=== PATIENT | male | born 1980 | race African-American/Black ===

== ENCOUNTER 2018-11-09 17:40 | Observation (INO) ==
[2018-11-09] MEDS ORDERED: ASPIRIN PO ONE (18:01)
[2018-11-09 18:32] LABS: BASO# 0.02 X1000 (0.0-0.2); BASO% 0.3 % (0.0-0.8); EOS# 0.13 X1000 (0.0-0.7); EOS% 1.8 % (0.0-10.0); HEMATOCRIT 37.8 % (42.0-52.0); HEMOGLOBIN 12.6 g/dL (14.0-18.0); IMM GRAN# 0.01 X1000 (0.0-0.04); IMM GRAN% 0.1 % (0.0-0.5); LYMPH# 3.23 X1000 (1.2-3.4); LYMPH% 44.3 % (20.5-51.1); MCH 28.4 PG (27-31); MCHC 33.3 g/dL (33-37); MCV 85.1 FL (81-99); MONO# 0.71 X1000 (0.11-0.59); MONO% 9.7 % (1.7-9.3); MPV 9.9 FL (7.4-10.4); NEUT# 3.19 X1000 (1.4-6.5); NEUT% 43.8 % (42.2-75.2); PLT 248 X1000 (130-400); RBC 4.44 XMIL (4.7-6.1); RDW 12.9 % (11.5-14.5); WBC 7.29 X1000 (4.8-10.8)
--- NOTE | 2018-11-09 18:48 | Diag Imaging Result Doc PS360 ---
EXAM: CHEST-2 VIEWS 11/09/2018 HISTORY: chest pain TECHNIQUE: PA and lateral chest COMMENT: There is no evidence of acute cardiac or pulmonary disease. Compared to 06/17/2015 there has been no significant change in the appearance of the chest. IMPRESSION: No evidence of acute disease. Electronically signed by Jair Grullon 11/09/2018 6:46 PM
--- NOTE | 2018-11-09 18:55 | PROVIDER DOCUMENTATION ---
HPI-Chest Pain - General Chief Complaint: Chest Pain Stated Complaint: PAIN IN CHEST / ARM / BACK Time Seen by Provider: 11/09/18 18:22 Source: patient Allergies/Adverse Reactions: Patient Allergies Allergy/AdvReac Type Severity Reaction Status Date / Time No Known Allergies Allergy Verified 09/17/18 17:13 Home Medications: Home Medication List Medication Instructions Recorded Confirmed Last Taken Type Doxycycline 100 mg PO BID #14 tab 09/17/18 Unknown Rx - History of Present Illness-CP Nature of Presenting Problem: pt reports substernal and left side CP radiating down left arm onset yesterday but has become progressively worse today, pt reports dyspnea, w/o n/v or diaphoresis. pt denies other sx at this time, pain is still present reported as 02/02 now. Location: reports: substernal, other (left side) Chest Pain Radiation: reports: arms (left arm) Quality of Pain: reports: fullness, sharp Severity in ED: moderate Onset/Duration: 24 hours ago Timing: still present Context/Activities at Onset: reports: none Modifying Factors: improves with: nothing Associated Symptoms: reports: shortness of breath. denies: diaphoresis, dizziness, nausea, syncope, vomiting Nitro Today/Relief: no nitro taken today Aspirin Treatment Today: 325 mg x 1 Prior Chest Pain/Cardiac Workup: reports: no prior chest pain, no prior cardiac workup Similar Symptoms Previously?: No Recently Seen Here or By Another Healthcare Provider: No Review of Systems - Adult - REVIEW OF SYSTEMS - ADULT Constitutional: reports: no symptoms reported Eyes: reports: no symptoms reported Ears, Nose, Mouth & Throat: reports: no symptoms reported Cardiovascular: reports: see HPI Respiratory: reports: see HPI Gastrointestinal: reports: no symptoms reported Genitourinary: reports: no symptoms reported Musculoskeletal: reports: no symptoms reported Integumentary: reports: no symptoms reported Neurological: reports: no symptoms reported Psychiatric: reports: no symptoms reported Endocrine: reports: no symptoms reported Hematologic/Lymphatic: reports: no symptoms reported Allergic/Immunologic: reports: no symptoms reported All Other Systems: Reviewed and Negative Past History - Adult - PAST MEDICAL HISTORY-ADULT Review of Records: reports: Old Records Reviewed, Nursing Assessment Review, Medications Reviewed Major Childhood Illnesses: reports: denies history Cardiovascular: reports: denies history Respiratory: reports: asthma Gastrointestinal: reports: denies history Musculoskeletal: reports: denies history Neurological: reports: denies history Endocrine/Immune: reports: denies history Diabetes Type: Type 2 Diabetes controlled by:: PO Meds - PRIOR SURGERIES/PROCEDURES Surgical/Procedure History: reports: reviewed, not pertinent - IMMUNIZATION STATUS Childhood Immunizations: See Nurse Assessment Flu Vaccine: See Nurse Assessment - FAMILY HISTORY Family History: diabetes (borderline) - SOCIAL HISTORY Smoking: greater than 1 pack/day Provider spent 3-5 mins advising pt. on dangers of tobacco.: Discussed manners to quit use, and f/u contacts for add'l counseling. Substance Use: none/never Alcohol Use Frequency: never Physical Exam-General - PHYSICAL EXAM-ADULT Initial Vital Signs Reviewed: Yes - CONSTITUTIONAL General Appearance: appears well, alert, mild distress, obese - EYES Eyes: PERRL/EOMI, pink conjunctivae. negative: anisocoria, photophobia, sclera injected, scleral icterus - HEAD, EARS, NOSE, MOUTH & THROAT HENMT: normocephalic/atraumatic, moist mucous membranes, normal ENT inspection - NECK Neck: non-tender, full range of motion, supple - RESPIRATORY Respiratory: chest non-tender, lungs clear, normal breath sounds, no respiratory distress, no accessory muscle use. negative: respiratory distress - CARDIOVASCULAR Cardiovascular: normal peripheral pulses, regular rate, rhythm, no edema - GASTROINTESTINAL (ABDOMEN) Abdominal Exam: normal bowel sounds, non tender, soft - LYMPHATIC Lymphatic: no adenopathy - MUSCULOSKELETAL Back Exam: normal inspection, no CVA tenderness, no vertebral tenderness Extremity: normal range of motion, non-tender, normal gait, normal inspection, no pedal edema, no calf tenderness, normal capillary refill - SKIN Integumentary: normal color, normal turgor, warm/dry - NEUROLOGIC Neurologic: junior web designer II-XII nml as tested, grossly normal, no motor/sensory deficits. negative: facial droop, focal weakness - PSYCHIATRIC Psych/Mental Status: normal mood/affect, normal thought content, normal thought process, oriented x 3 - HEART Score HEART Score: History: Highly Suspicious (smoker, diabetic, morbid obesity) HEART Score: ECG: Normal HEART Score: Age: < or = 45 Years HEART Score: Risk Factors for Atherosclerotic Disease: > or = 3 Risk Factors or History of Atherosclerotic Disease HEART Score: Troponin: < or = Normal Limit (Obesity, borderline diabetic) Total HEART Score:: 4 Progress - PLAN OF CARE/RESULTS Progress/Plan/Lab Results: Vital Signs - 8 hr 11/09/18 17:56 11/09/18 19:55 Temperature 98 F Pulse Rate 90 79 Respiratory Rate 18 18 Blood Pressure 121/81 105/55 O2 Sat by Pulse Oximetry 99 97 Laboratory Results - last 24 hr 11/09/18 11/09/18 11/09/18 18:22 18:22 18:22 WBC 7.29 RBC 4.44 L Hgb 12.6 L Hct 37.8 L MCV 85.1 MCH 28.4 MCHC 33.3 RDW Std Deviation 12.9 Plt Count 248 MPV 9.9 Immature Gran % (Auto) 0.1 Neut % (Auto) 43.8 Lymph % (Auto) 44.3 [place] % (Auto) 9.7 H Eos % (Auto) 1.8 Baso % (Auto) 0.3 Immature Gran # (Auto) 0.01 Neut # (Auto) 3.19 Lymph # (Auto) 3.23 [place] # (Auto) 0.71 H Eos # (Auto) 0.13 Baso # (Auto) 0.02 PTT (Actin FS) D-Dimer, Quantitative Sodium Potassium Chloride Carbon Dioxide Anion Gap BUN Creatinine Estimated GFR/1.73 m2 BUN/Creatinine Ratio Glucose Calculated Osmolality Calcium Magnesium Total Bilirubin AST ALT Alkaline Phosphatase Creatine Kinase 445 H Creatine Kinase Index 1.2 CK-MB (CK-2) 5.56 H Troponin T < 0.010 Igl-F-Knsjocbhyoo Pept Total Protein Albumin Globulin Albumin/Globulin Ratio 11/09/18 11/09/18 11/09/18 18:22 18:22 18:22 WBC RBC Hgb Hct MCV MCH MCHC RDW Std Deviation Plt Count MPV Immature Gran % (Auto) Neut % (Auto) Lymph % (Auto) [place] % (Auto) Eos % (Auto) Baso % (Auto) Immature Gran # (Auto) Neut # (Auto) Lymph # (Auto) [place] # (Auto) Eos # (Auto) Baso # (Auto) PTT (Actin FS) 21.6 L D-Dimer, Quantitative 0.39 Sodium 142 Potassium 4.5 Chloride 105 Carbon Dioxide 27 Anion Gap 10 BUN 17 Creatinine 1.0 Estimated GFR/1.73 m2 > 60 BUN/Creatinine Ratio 17 Glucose 96 Calculated Osmolality 285 Calcium 9.1 Magnesium 1.9 Total Bilirubin 0.20 AST 24 ALT 40 Alkaline Phosphatase 80 Creatine Kinase Creatine Kinase Index CK-MB (CK-2) Troponin T Xjx-[id number]-Sjrpfdwacrr Pept 46 Total Protein 7.0 Albumin 4.1 Globulin 3.0 Albumin/Globulin Ratio 1.0 11/09/18 11/09/18 20:08 20:08 WBC RBC Hgb Hct MCV MCH MCHC RDW Std Deviation Plt Count MPV Immature Gran % (Auto) Neut % (Auto) Lymph % (Auto) [place] % (Auto) Eos % (Auto) Baso % (Auto) Immature Gran # (Auto) Neut # (Auto) Lymph # (Auto) [place] # (Auto) Eos # (Auto) Baso # (Auto) PTT (Actin FS) D-Dimer, Quantitative Sodium Potassium Chloride Carbon Dioxide Anion Gap BUN Creatinine Estimated GFR/1.73 m2 BUN/Creatinine Ratio Glucose Calculated Osmolality Calcium Magnesium Total Bilirubin AST ALT Alkaline Phosphatase Creatine Kinase 441 H Creatine Kinase Index 1.2 CK-MB (CK-2) 5.30 H Troponin T < 0.010 [id number] Pept Total Protein Albumin Globulin Albumin/Globulin Ratio Orders Category Date Time Status Nursing- Obtain EKG ONCE Care 11/09/18 18:00 Active CHEST-2 VIEWS [RAD] Stat Exams 11/09/18 18:00 Completed CBC WITH DIFF [HEME] Stat Lab 11/09/18 18:22 Completed CK PROFILE [SP CHEM] Stat Lab 11/09/18 18:22 Completed CK PROFILE [SP CHEM] Stat Lab 11/09/18 20:08 Completed COMPREHENSIVE METABOLIC PANEL [CHEM] Stat Lab 11/09/18 18:22 Completed D-DIMER [COAG] Stat Lab 11/09/18 18:22 Completed MAGNESIUM [CHEM] Stat Lab 11/09/18 18:22 Completed PRO B-NATRIURETIC PEPTIDE Stat Lab 11/09/18 18:22 Completed PTT [COAG] Stat Lab 11/09/18 18:22 Completed TROPONIN T Stat Lab 11/09/18 18:22 Completed TROPONIN T Stat Lab 11/09/18 20:08 Completed Aspirin Med 11/09/18 18:01 Discontinued 325 mg PO NOW ONE EKG [EKG] Stat Ther 11/09/18 18:00 Draft EKG [EKG] Stat Ther 11/09/18 20:00 Draft discussed with patient the he would be admitted for furthur observation, pt verbalized understanding and agreed with POC. pt not given nitro due to low BP Result Diagrams: 11/09/18 18:22 11/09/18 18:22 - REASSESSMENT Reassessment #1 Status: unchanged Reassessment Comment: pt still having CP - EKG 1 Time of EKG reading by physician:: 18:06 EKG Read and Signed by:: Abhi Delarosa EKG Interpretation (*Must complete 3 of following elements*): Normal Rate: 84 Rhythm: NSR Jachin: normal QRS: normal DE Interval: normal ST Wave: normal Prior EKG Comparison: unchanged from prior 2 Time of EKG reading by physician:: 20:01 EKG Read and Signed by:: Kev Lew EKG Interpretation (*Must complete 3 of following elements*): Normal Rate: 78 Rhythm: NSR Jachin: normal QRS: normal DE Interval: normal ST Wave: normal Prior EKG Comparison: unchanged from prior - XRAY 1 XRAY Study: Chest Impression: Normal Comparison with other Films: no changes (NAD) - CONSULTS/PCP/HOSPITALIST Notification #1 *Consult/PCP/Hospitalist*: leanne Time Discussed: 21:35 Consult Disposition: Admit Departure - Departure Date of Disposition Decision: 11/09/18 Time of Disposition Decision: 21:35 DIAGNOSIS: Chest pain Disposition: ADMITTED INPATIENT 09 Certified Medical Emergency: Emergent Condition: Stable Referrals and Follow-Ups: Emily Xavier CRNP [Primary Care Provider] - - Critical Care Note This patient required my direct & personal management of CC.: No Attestation - Physician/ PRERNA Attestation Patient care was provided by Advanced Practice Provider:: Yes Advanced Practice Provider:: Cheri Garza Advanced Practice Provider documentation review:: The Mid-level provider documentation, treatment plan and medical decision making was reviewed by the physician who agrees with all treatment and medical decision making by the P. The physician spent face to face time with patient:: No Advanced Practice Provider documentation review:: Supervising physician onsite and consulted in the evaluation and care of this patient. The physician did not have a face to face encounter with the patient.
[2018-11-09 18:57] LABS: AGAP 10; ALBUMIN 4.1 g/dL (3.5-5.0); ALKALINE PHOSPHATASE 80 U/L (32-122); BUN 17 mg/dL (8-22); CALCIUM 9.1 mg/dL (8.8-10.2); CHLORIDE 105 mmol/L (98-107); COSMO 285; ESTIMATED GFR > 60; GLUCOSE 96 mg/dL (70-104); GOT 24 U/L (10-34); GPT 40 U/L (10-44); MAGNESIUM 1.9 mg/dL (1.5-2.7); POTASSIUM 4.5 mmol/L (3.5-5.1); SODIUM 142 mmol/L (136-145); TCO2 27 mmol/L (25-35)
[2018-11-09 19:08] LABS: PTT 21.6 Seconds (22.3-41.8)
[2018-11-09 19:10] LABS: D-DIMER 0.39 ug/mLFEU (0.0-0.52)
[2018-11-09 19:11] LABS: CK INDEX 1.2 (0.0-2.5); CK-MB 5.56 ng/mL (0.0-5.0)
--- NOTE | 2018-11-09 20:09 | EKG Report ---
Test Performed on : 11/09/2018 8:01:05 PM Test Reason : cp Blood Pressure : / mmHG Vent. Rate : 078 BPM Atrial Rate : 078 BPM P-R Int : 168 ms QRS Dur : 086 ms QT Int : 390 ms P-R-T Axes : 042 038 024 degrees QTc Int : 444 ms Normal sinus rhythm. Normal ECG When compared with ECG of 09-NOV-2018 18:06, (Unconfirmed) No significant change was found Unconfirmed Result
--- NOTE | 2018-11-09 20:09 | EKG Report ---
Test Performed on : 11/09/2018 6:06:26 PM Test Reason : chest pain Blood Pressure : / mmHG Vent. Rate : 084 BPM Atrial Rate : 084 BPM P-R Int : 162 ms QRS Dur : 088 ms QT Int : 366 ms P-R-T Axes : 047 037 020 degrees QTc Int : 432 ms Normal sinus rhythm. Normal ECG No previous ECGs available Unconfirmed Result
[2018-11-09 21:00] LABS: CK INDEX 1.2 (0.0-2.5); CK-MB 5.3 ng/mL (0.0-5.0)
[2018-11-09] MEDS ORDERED: MORPHINE IV PRN ×2 (22:25→22:37)
[2018-11-09] MEDS ORDERED: TORADOL IV PRN (22:25)
[2018-11-10] MEDS ORDERED: G.I. COCKTAIL PO ONE (09:09)
--- NOTE | 2018-11-10 10:25 | EKG Report ---
Test Performed on : 11/10/2018 08:40:56 AM Test Reason : ROUTINE Blood Pressure : / mmHG Vent. Rate : 066 BPM Atrial Rate : 066 BPM P-R Int : 168 ms QRS Dur : 086 ms QT Int : 416 ms P-R-T Axes : 050 045 048 degrees QTc Int : 436 ms Normal sinus rhythm. with sinus arrhythmia. Normal ECG When compared with ECG of 09-NOV-2018 20:01, (Unconfirmed) No significant change was found Unconfirmed Result
[2018-11-10 11:51] LABS: CK INDEX 1.3 (0.0-2.5); CK-MB 4.2 ng/mL (0.0-5.0)
[2018-11-10] MEDS: GLUCOPHAGE PO SCH (16:59)
--- NOTE | 2018-11-10 23:38 | HISTORY AND PHYSICAL ---
ADDENDUM: Patient seen and examined by myself. Full note dictated and discussed with nurse practitioner. Patient presented to the hospital with a chief complaint of chest pain midsternal. No real radiation. [place] nauseated. Symptoms have been present for a couple of days, closer to a week. Do not seem to be getting any better or worse. No real change with activity. The patient currently is awake, alert. He is in no distress. He is pleasant to talk with. We will admit him to the hospital, rule out ND. Certainly feel as though this is more noncardiac and more likely GI related. Further orders as needed. cc: Isael Abbasi MD
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
[2018-11-11 07:21] VITALS: BP 120/62
[2018-11-11] MEDS: GLUCOPHAGE PO SCH (08:55)
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
--- NOTE | 2018-11-12 04:08 | DISCHARGE SUMMARY ---
ADMISSION DATE: 11/09/2018 DISCHARGE DATE: 11/11/2018 DISCHARGE DIAGNOSES: 1. Chest pain, resolved. 2. Epigastric pain. 3. Left-sided chest wall musculoskeletal pain. 4. Diabetes. 5. Morbid obesity. CONSULTATIONS: None. PROCEDURES: None. BRIEF HOSPITAL COURSE: The patient is a 38-year-old morbidly obese male who presented to the hospital, treated in the usual fashion, placed on telemetry and rule out RI protocol. Thankfully, on discharge he notes that his symptoms have much improved. He is currently having no chest pains. States his chest wall does hurt when he moves his arm. DISPOSITION: Patient will be discharged home. He will follow up outpatient with treatment facility of choice. No changes on diet or activity otherwise. Discussed with the patient that he should consider diet planning, exercise and weight loss. cc: Isael Abbasi MD
== END 2018-11-11 11:12 | disposition home or self-care (01) ==
LOC: P.EDIPHOLD 17:40 → P.ED 17:40 → P.MEDSURG 11-10 07:52
PROVIDERS: ATTEND Family Medicine
CPT/HCPCS: 71020; 71046; 80053; 82550; 82553; 82948; 83735; 83880; 84484; 85025; 85379; 85730; 93005; 94761; 99285; A9270; J2270; XXXXX